=== PATIENT | male | born 1945 | race Caucasian/White ===

== ENCOUNTER 2016-12-17 05:44 | Inpatient (IN) | payer MEDICARE, BC ==
[~2016-12-17] VITALS: Ht 185.4 cm; Wt 86.8 kg
--- NOTE | ~2016-12-17 | WND ---
ADMIT: 12/17/2016 RM/LOC: 508 [facility] MR#: [id number] [address] [facility] [address] [place], [place] [address] ZACKARY NUNES [address] [place] [address] W[facility] SEX: M AGE: 71 : 1945 DATE OF VISIT: 12/19/2016 TIME IN: 1120 hours. TIME OUT: 1130 hours. All 10 minutes was spent in ostomy education. HISTORY OF PRESENT ILLNESS: This is a 71-year-old male, who is status post laparoscopic low anterior colon resection with diverting loop ileostomy secondary to rectal cancer. He had completed his neoadjunctive chemotherapy and radiation. His presenting symptoms were diarrhea with incontinence that time. He was diagnosed in the Fall of 2015. He went to Surgery on 11/19/2016. He was seen by Valencia Dial APRN, certified wound ostomy nurse on 12/18/2016, at which time, his ostomy education was started. He also had his pouching system changed at that time. REVIEW OF SYSTEMS: He is examined in a hospital room where he is awake, alert, and oriented x3. He is dressed in streak colors, ready to be discharged home. He denies any recent fever or chills. No nausea or vomiting. No cough, cold, or chest pain. He states his abdomen is quite comfortable. He has no concerns other than he would like to be discharged. PHYSICAL EXAMINATION: VITAL SIGNS: 98.1, 66, 16, blood pressure 132/63, O2 sats on room air 97%. Focused exam is to his abdomen. His abdomen is slightly distended. He does have a stoma in the right lower quadrant. It is bright red, moist with the os in the center. There is a rosemarie in place. It is 40 mm. The pouching system is intact without leakage. There is fecal effluent in the pouching system. ASSESSMENT: Functioning loop ileostomy status post laparoscopic low anterior resection due to rectal cancer. TREATMENT PLAN: All 10 minutes was spent in reviewing ostomy education. They also decided to get their ostomy supplies from [facility] in [place]. Therefore, an E-script was sent to [facility] for Skip New Image 70 mm ADMIT: 12/17/2016 RM/LOC: 508 [facility] MR#: [id number] [id number] [place], [place] [address] ZACKARY NUNES [address] [place] [address] W[facility] Clinic SEX: M AGE: 71 : 1945 wafer #[id number] with pouch #[id number], with instructions to change the wafer and pouch about every 3 to 4 days and as needed for leakage. Also ordered adhesive remover wipes to be used with wafer changes if needed to help remove the ostomy wafer. Also ordered No Sting Barrier wipes to use around the stoma to protect with skin. The patient has a followup appointment [facility] on 01/02/2017 at 1245 hours. Encouraged to call the [facility] with any questions or concerns prior to that time. The patient and his voiced understanding of physical findings and treatment plan. Thank you for this referral, and Wound will continue to follow. Vero Restrepo APRN/ ana JOB #: [id number] CC: Roger Ocampo MD, Attending Physician Carlos Guerra MD, Family Physician
--- NOTE | ~2016-12-17 | WND ---
ADMIT: 12/17/2016 RM/LOC: 508 [facility] MR#: [id number] [address] [place], [place] [address] CLAY NUNES [address] [place] [address] Wound Care Clinic SEX: M AGE: 71 : 1945 DATE OF VISIT: 12/18/2016 REASON FOR VISIT: Status post colon resection and low anterior with diverting loop ileostomy laparoscopic secondary to obstructing rectal cancer. HISTORY OF PRESENT ILLNESS: Clay is a 71-year-old male, who was admitted to [facility] on December 17, 2016, for surgery secondary to rectal cancer. He has completed his neoadjuvant chemoradiation therapy. He reports that in July this was diagnosed. He said that he was having diarrhea with incontinence at times. PAST MEDICAL HISTORY: Thyroid disorder and malignant neoplasm. ALLERGIES: No known medication allergies. CURRENT MEDICATIONS: 1. Synthroid 0.175 mg tablet. 2. Lovenox 40 mg subcu daily. 3. Pepcid 20 mg twice daily. SOCIAL HISTORY: He reports that he has smoked his entire life 1 pack a day. He also reports using caffeine. He denies any alcohol or illicit drug use. FAMILY HISTORY: He reports that his mother in her 70s of ovarian cancer, and his father in his 90s of a motor vehicle accident. REVIEW OF SYSTEMS: The patient is an alert and oriented 71-year-old male, who is anxious to discharge from the hospital. He reports the only pain he is having right now is secondary to the gas that they inflated his abdomen with prior to surgery. He denies any complaints of fever or chills. He denies any nausea or vomiting. His girlfriend is at bedside, and they are both receptive to learning about the ileostomy. He does report a dry cough, which increases his abdominal pain. He denies any chest pain or shortness of breath. PHYSICAL EXAMINATION: VITAL SIGNS: Temperature is 98.8 degrees Fahrenheit, pulse is 66, respirations 18, blood pressure 115/58, and pulse ox 92% on room air. Assessment of his abdomen reveals a well budded loop ileostomy in the right lower quadrant with the rosemarie in place. The stoma is pink and moist. Peristomal skin is intact. He has approximately 300 mL of brown effluent in his bag. ADMIT: 12/17/2016 RM/LOC: 508 [facility] MR#: [id number] [address] [address] LCAY NUNES [address] [place] [address] Wound Care Clinic SEX: M AGE: 71 : 1945 ASSESSMENT: Colon resection and low anterior with diverting loop ileostomy. PLAN: Clay was able to empty the bag himself. He also changed the wafer himself. He had trouble hurting while trying to remove the current wafer and ripped some of his skin in the 7 o'clock area from his stoma. After the peristomal skin was cleansed with warm soapy water, I used skin prep and then helped him place the wafer over the rosemarie. In addition, I helped him apply the bag to the wafer. [facility] will continue to monitor and continue to educate. He was left the [facility] patient information folder and voiced no further questions or concerns. I would like to thank Dr. Ocampo for allowing us to participate in Clay' care. Valencia Dial, MAREK/ ana JOB #: [id number] CC: Roger Ocampo, Attending Physician Carlos Guerra, Family Physician
[2016-12-20] MEDS ORDERED: SYNTHROID DP0.175 MG PO (16:44)
[2016-12-20] MEDS ORDERED: NORCO 5-325 TA1 EACH PO (16:45)
--- NOTE | 2017-01-13 08:52 | DS ---
ADMIT: 12/17/2016 RM/LOC: 508 [facility] MR#: [id number] [address] [facility] [address] [place], [place] [address] ZACKARY NUNES [address] [place] [address] Discharge Summary SEX: M AGE: 71 : 1945 ADMISSION DATE: 12/17/2016 DISCHARGE DATE: 12/19/2016 ADMITTING DIAGNOSIS: Rectal cancer. DISMISSAL DIAGNOSES: 1. 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 2. Hypothyroidism. PROCEDURES: Laparoscopic low anterior resection with diverting loop ileostomy. HOSPITAL COURSE: The patient was an inpatient admit with routine med surg orders. He was given a morphine NARCOTICS AND/OR VICE DETECTIVE for pain control and was started on clears. Overall, the patient recovered well while in the hospital. A Eparce that was placed intraoperatively was pulled postop day #1. Wound Care nursing was consulted to help in the ostomy cares of this patient, and he was tolerating an advanced diet. Vitals began to normalize while in the hospital, and he was afebrile. The patient was weaned off his morphine NARCOTICS AND/OR VICE DETECTIVE and was tolerating oral pain medications. He continued to recover well and discharged home on 12/19/2016. DISCHARGE INSTRUCTIONS: 1. Follow up with Dr. Ocampo in [place] on 12/30/2016. 2. Okay to shower. 3. No lifting greater than 20 pounds for 4 weeks. 4. Empty bag when 1/3 to 1/2 full and change wafer in bag every 3 days. 5. Follow up with Wound Care January 02. DISCHARGE MEDICATION LIST: 1. Synthroid 0.175 mcg at bedtime. 2. [place] 5/325, 1-2 tabs q.4 hours p.r.n. ANGELINE Izaguirre / Roger Ocampo MD / ramos JOB #: [id number] CC: Roger Ocampo MD, Attending Physician Carlos Guerra MD, Family Physician
--- NOTE | 2017-01-13 08:52 | OR ---
ADMIT: 12/17/2016 RM/LOC: 508 [facility] MR#: [id number] [address] [address] ZACKARY NUNES [address] [place] [address] Operative/Delivery Room Report SEX: M AGE: 71 : 1945 SURGERY DATE: 12/17/2016 SURGEON: Roger Ocampo MD HEAD HOLDER: Boy Montenegro MD. PREPROCEDURE DIAGNOSIS: Rectal cancer. POSTPROCEDURE DIAGNOSIS: Rectal cancer. PROCEDURE: Laparoscopic low anterior resection with diverting loop ileostomy. INDICATIONS: The patient is a 71-year-old who has been diagnosed with a large, near obstructing low lying rectal cancer, underwent preoperative chemo radiation therapy who now presents for laparoscopic versus open low-anterior resection. FINDINGS: The patient was taken to the operating room. General endotracheal anesthesia was induced. The patient's legs were placed in low lithotomy position. The abdomen was prepped and draped in normal sterile fashion. The case was begun by making a vertical infraumbilical 5 mm skin incision using #11 blade. A retractable 5 mm port was placed within the abdomen. The abdomen was insufflated with CO2 to an intra-abdominal pressure of 15 mmHg. A camera was placed showing no bowel or vascular injury. A left lower quadrant 5 mm port was placed under direct vision. A right upper quadrant 5-mm port was placed and a right lower quadrant 12-mm port was placed under direct vision. The case was begun by eviscerating all the small bowel loops out of the pelvis and placing the patient in a steep Trendelenburg position. We began by mobilizing the sigmoid colon from the left side of the retroperitoneum along the white line of Toldt using Harmonic scalpel. We identified the left ureter easily. We scored the visceral peritoneum on each pelvic sulci laterally and wide to have a nice mesorectal excision. When we continued this dissection distal to the sacral promontory, we were able to obtain access to the posterior mesorectal space and again using Harmonic scalpel dissection, we continued this dissection down through avascular mesorectal space posteriorly and then we worked both posterolaterally and anterolaterally and then we eventually connected our dissection anteriorly over the top of the rectum just below the seminal vesicles. Continued our dissection distally and circumferentially until we identified our previously colonoscopically placed blue dye. We could clearly see the tumor during the course our dissection, but I also knew that was a very long tumor preoperatively. So I wanted to make sure we got down all way down to our previously marked blue dye, which we were able to easily identify. We dissected posteriorly to the rectum taking down the mesorectal fatty tissue in preparation for division of our distal rectum. Once I felt satisfied with this dissection, I then used about 4 or 5 firings of an Endo JO-45, 3.5 mm stapler to divide the distal rectum. We were able do this completely and freely mobilize the rectum out of the pelvis which again identified a nonbloody, nice, avascular mesorectal plane. I then was able to manipulate our large bowel and identify a segment of the distal sigmoid that I ADMIT: 12/17/2016 RM/LOC: 508 [facility] MR#: [id number] [address] [place] [address] ZACKARY NUNES [facility] [place] [address] Operative/Delivery Room Report SEX: M AGE: 71 : 1945 felt easily reached down to our distal rectal staple line. I have marked the area with harmonic scalpel scoring the sigmoid mesentery on both the lateral and medial aspect so that we could divide the mesentery through our right lower quadrant excision site. Once we had this marked, I removed our right lower quadrant 12 mm port site, enlarged the skin incision with a #10 blade. Divided the rectal muscular fascia with cautery, placed a wound protector within the abdomen and brought the specimen out through the right lower quadrant incision. We were able to identify our previously identified area for a proximal anastomosis. We divided the mesentery between clamps and 0 Vicryl ties. We divided our colon with a 10 blade and placed a 3-0 Prolene pursestring suture through our proximal colon. Placed a 29 EEA anvil into proximal colon segment and tied down the pursestring. Divided the pericolonic fatty connective tissue with electrocautery. We then fine tuned the purse- string with another interrupted 3-0 silk Popoff sutures. I felt like we had good bowel apposition with our circular staple. We placed the specimen back into the intra-abdominal space. We re-insufflated the intra-abdominal space with CO2 and obtained a pneumoperitoneum using towel clips at our proposed right lower quadrant ostomy excision site. Dr. Montenegro went below, placed dilators up through the rectum, felt that we were about 3 cm or so proximal to the sphincter muscles. He brought a 29 EEA stapler through the sphincter muscles and brought the spike out through our lower rectal staple line. I was able to attach the 2 ends of our circular staple. He tied these down and there was no twisting of our bowel. There was no tension at all on this anastomosis. We identified a really good blood supply as well. He fired the anastomosis, removed the stapler with nice full thickness proximal distal rings. Since we were diverting with a loop, I did not test the anastomosis with a proctoscope. Identified the cecum and ran the small bowel about 15 cm proximally. We shut off our air, removed all of our ports sites, opened our right lower quadrant excision site, removing the towel clips. We brought the bowel out through this right lower quadrant site. I sutured down the fascia laterally with running #1 ADMIT: 12/17/2016 RM/LOC: 508 [facility] MR#: [id number] [address] [address] ZACKARY NUNES [address] [place] [id number] Operative/Delivery Room Report SEX: M AGE: 71 : 1945 single stranded PDS suture in a posterior and anterior layer, leaving an adequate defect for a loop ileostomy bowel. I then placed a stomal bridge through the mesenteric defect. I opened the distal aspect of our ileum and broke the proximal aspect of our ileostomy with interrupted 3-0 Vicryl suture and the distal aspect even with the surrounding dermis. I then closed the lateral aspect of the skin incision at this stomal site with skin luz and our 3 remaining 5 mm port sites closed with skin luz as well. A stoma appliance was then placed around our loop ileostomy site. Patient's legs were placed in the supine position. The patient was extubated and wheeled to recovery room in good condition. EDIT: 12/18/2016 0612 njv Roger Ocampo MD/ ana JOB #: [id number] CC: Roger Ocampo, Attending Physician Carlos Guerra, Family Physician
[2017-02-13] MEDS ORDERED: FLOMAX DPS0.4 MG PO (08:18)
== END 2016-12-19 11:40 | disposition home or self-care (01) | DRG 331 ==
LOC: WOR 05:44 → 5MS 05:44
PROVIDERS: ADMIT Surgery
DX: C20 Malignant neoplasm of rectum (principal); E03.9 Hypothyroidism, unspecified; F17.210 Nicotine dependence, cigarettes, uncomplicated

== ENCOUNTER 2017-02-07 12:41 | Inpatient (IN) | payer MEDICARE, BC ==
[~2017-02-07] VITALS: Ht 185.4 cm; Wt 85.6 kg
--- NOTE | ~2017-02-07 | HP ---
ADMIT: 02/07/2017 RM/LOC: [facility] MR#: [id number] [address] [address] ZACKARY NUNES [address] [place] [address] Pre-OP History and Physical SEX: M AGE: 71 : 1945 DATE OF SERVICE: 02/07/2017 REASON FOR ADMISSION: Rectal bleeding. HISTORY OF PRESENT ILLNESS: This patient is a 71-year-old male, who actually is status post laparoscopic low anterior resection about six weeks ago somewhere around there for a rectal cancer with diverting loop ileostomy and has not been reversed yet. Did some chemotherapy, but did not really tolerate it that well and so did not finish. Been having some complaints of kind of some lower pelvic type issues at times and at times has passed little it of mucousy blood and that is not unusual as we have told him, but here recently started having a fair amount of bleeding per rectum. He was seen over in [place]. Actually, his hemoglobin I think was little down from 11 to 9, they ended up transferring him over here, they gave him 2 units of blood. His hemoglobin here was 11 as well. For whatever reason, Dr. Hough re-CT'ed him here, nothing different from one stand to the other. There are no signs of active bleeding and it almost looks like an abscess or possible breakdown of his anastomosis. I think this is more of redundancy of the bowel down there. He does not have a white count, he then has fevers that acts like that. He does have some diverticulitis, could be a bleed from the anastomosis or from diverticula. PAST MEDICAL HISTORY: Significant that is his only surgery. He has some hypothyroidism, BPH, for which he takes Flomax and thyroid medicine. Like I said, no other surgeries. Denies any significant other complaints. REVIEW OF SYSTEMS: Overall, he has been feeling a little bit weak and that is it, and having the rectal bleeding. All other review of systems negative. His ostomy is working. No belly pain. He is eating, drinking, doing okay. No chest pain or shortness of breath. ALLERGIES: NO KNOWN DRUG ALLERGIES. PHYSICAL EXAMINATION: GENERAL: He is alert and oriented. He is in no acute distress. VITAL SIGNS: Stable. HEENT: His sclerae are nonicteric. Extraocular muscles are intact. CHEST: Clear. HEART: Regular rate and rhythm. ABDOMEN: His ostomy is in place. In his right lower quadrant, loop ileostomy. ADMIT: 02/07/2017 RM/LOC: [facility] MR#: [id number] [address] [address] ZACKARY NUNES [place] [address] [place] [address] Pre-OP History and Physical SEX: M AGE: 71 : 1945 There is no pain. No blood there. Soft abdomen. Positive bowel sounds. EXTREMITIES: No clubbing, cyanosis, or edema. He does have bright red blood per rectum. ASSESSMENT AND PLAN: At this point, he is obviously going to be admitted but prior to that, I am going to do a flexible sigmoidoscopy on him to look at his anastomosis. I visit with him and the family. There are times we can find something, most of the time we cannot. I may not be able to see anything with the blood. Would just kind of have to take a quick look, try to be as gentle as possible. I am not too worried because, part of it is, he is already diverted with his loop ileostomy. We will go from there. Boy Montenegro MD/ ana JOB #: [id number] CC: Boy Montenegro, Attending Physician Boy Montenegro, Family Physician
[~2017-02-07 12:41] MED LIST: NORCO 5-325 TA1 EACH PO; SYNTHROID DP0.175 MG PO
[2017-02-13] MEDS ORDERED: FLOMAX DPS0.4 MG PO (08:18)
--- NOTE | 2017-02-17 10:27 | ER ---
ADMIT: 02/07/2017 RM/LOC: 305 [facility] MR#: [id number] [address] [address] ZACKARY NUNES [address] [place] [address] Emergency Room Report SEX: M AGE: 71 : 1945 DATE: 02/07/2017 ADDENDUM: A 71-year-old white male coming in with rectal bleeding from [place]. Evidently, he had acute episode of this. He evidently at the beginning of December had rectal cancer and had a colectomy. CT scan here shows a probable rectal abscess at the anastomosis of the site. He has josafat blood stool rectally. His CBC and chemistry have been negative. I have talked to Dr. Montenegro, he will admit him. CONDITION ON DISCHARGE: Serious, but stable. Elian Hough MD/ gomezl JOB #: [id number] CC: Boy Montenegro MD, Attending Physician Boy Montenegro MD, Family Physician
--- NOTE | 2017-02-18 13:26 | OR ---
ADMIT: 02/07/2017 RM/LOC: 305 [facility] MR#: [id number] [address] [address] ZACKARY NUNES [address] [place] [address] Operative/Delivery Room Report SEX: M AGE: 71 : 1945 SURGERY DATE: 02/07/2017 SURGEON: Boy Montenegro MD PREPROCEDURAL DIAGNOSIS: Need for IV access, critically ill patient. POSTPROCEDURAL DIAGNOSIS: Need for IV access, critically ill patient. PROCEDURE: Placement of left subclavian Arrow triple lumen. ANESTHESIA: Local at bedside. He is intubated. INDICATION FOR PROCEDURE: Please see notes in chart. DESCRIPTION OF PROCEDURE: After the risks, benefits, possible complications, and alternatives had been explained and informed consent had been obtained from family. Here at the ICU at the bedside, surgical field was prepped and draped in a sterile manner. Complete sterile precautions were used. Gown, cap, gloves, and mask everything sterilely prepped and draped. Left infraclavicular area was anesthetized with lidocaine. Cook needle was introduced in the left subclavian vein with good aspiration. Guidewire was passed. There was some ectopy on the monitor. Dilated over top of the guidewire. The dilator removed the catheter threaded over top of the guidewire, and the Arrow triple lumen catheter threaded over the guidewire. The guidewire removed. There was good aspiration and flushing of all three ports. It was sewn in position. Currently, chest x-ray is pending. He tolerated it well. Boy Montenegro MD/ ana JOB #: [id number] CC: Boy Montenegro, Attending Physician Boy Montenegro, Family Physician
--- NOTE | 2017-02-18 13:26 | OR ---
ADMIT: 02/07/2017 RM/LOC: [facility] MR#: [id number] [address] ZACKARY NUNES [address] [place] [address] Operative/Delivery Room Report SEX: M AGE: 71 : 1945 SURGERY DATE: 02/07/2017 SURGEON: Boy Montenegro MD PREOPERATIVE DIAGNOSIS: Rectal bleeding status post laparoscopic low anterior resection for a rectal cancer back in December. He was treated with preoperative radiation chemotherapy. POSTOPERATIVE DIAGNOSIS: Significant hemorrhage from an ulcerated area basically into the left sacral area that we were finally able to control with thumbtacks. STRAIGHTEDGE MAN: Roger Ocampo MD, who was quite necessary for adequate exposure, suction, and control of this bleeding. It would not have been able to be accomplished without him. ESTIMATED BLOOD LOSS: 2000 mL. INDICATION FOR PROCEDURE: Please see my H and P. DESCRIPTION OF PROCEDURE: After the risks, benefits, possible complications, and the alternatives had been explained and informed consent had been obtained. The patient was taken back to the minor procedure room, and there was bright red blood right at his rectum, started off just doing a flex sig and the anastomosis is probably within 4 cm from his anus, and ultimately, I started suctioning and cleaning things, and in the process then this area of what looked like an ulcer, I cleaned some blood and some kind of semi fresh clot away and it started bleeding, and I was just basically unable to keep up with my suction with a colonoscope to where I could get a clip on there. I was trying to see if there was 1 vessel that I get a clip on. Ultimately, I pulled the scope out, held pressure. At this point, he was starting to lose enough blood and he was getting hypotensive and tachycardic. I had called Dr. Ocampo, my partner, and he came in, and we had intubated him. Like I said, I was holding pressure manually with a finger trying to blindly at least hold enough pressure to keep this from continuing bleeding while we got caught up, we got a couple units of blood in the room, but we ultimately at one point then started massive transfusion protocol, so we can get products more readily available. Once he was intubated, we had things under control. His blood pressure was better, his heart rate was better. We put him back on a side, used an anal speculum then and Radha sucker, which was much better sucker to get up there and actually using the colonoscope because this was just high enough you could not see it really with your naked eyes down it was up over just a corner and then what it looks like is a radiation ulcer basically into kind of the sacrum, and we finally identified this vessel. We were able to just use actually the sucker for manual pressure, and I originally used them through the scope, attempted to use a Resolution clip, and I felt like I was ADMIT: 02/07/2017 RM/LOC: [facility] MR#: [id number] [address] [address] ZACKARY NUNES [address] [place] [address] Operative/Delivery Room Report SEX: M AGE: 71 : 1945 good and right on it and I really clipped down, but it did not do anything, it continued to bleed. Ultimately, we ended up getting a couple of thumbtacks that we were able to go transiently up and pushed those into some of the kind of bone/cartilage around this and that finally stopped the bleeding. At this point, we got caught up, he ended up getting a total 4 units of blood, 4 units of FFP, and at this point, Dr. Ocampo and I are visiting and felt that the safest thing was to have Dr. Chandler from [facility] come in and embolize this vessel if we could find it to take the pressure off it just worried our tacks may not hold, and if they came loosening and start bleeding, and I might not get him anywhere before he , so from that standpoint from the minor room, he was taken over to [facility] for Dr. Chandler' procedure, and you can see his full dictated note on that. Boy Montenegro MD/ ana JOB #: [id number] CC: Boy Montenegro, Attending Physician Boy Montenegro, Family Physician
--- NOTE | 2017-03-12 16:25 | DS ---
ADMIT: 02/07/2017 RM/LOC: [facility] MR#: [id number] [address] ZACKARY NUNES [address] [place] [address] General Discharge Summary SEX: M AGE: 71 : 1945 ADMISSION DATE: 02/07/2017 DISCHARGE DATE: 02/11/2017 ADMITTING DIAGNOSIS: 1. Rectal bleeding status post laparoscopic low anterior resection for rectal cancer, status post chemotherapy. 2. Need for IV (intravenous) access. DISMISSAL DIAGNOSIS: 1. Rectal bleeding status post laparoscopic low anterior resection for rectal cancer, status post chemotherapy. 2. Need for IV (intravenous) access. 3. Hypothyroidism. 4. BPH (benign prostatic hypertrophy). 5. Diverticulitis. PROCEDURES: 1. Flexible sigmoidoscopy with mechanical hemostasis using thumb tacks. 2. Left subclavian Arrow triple-lumen catheter placement. 3. Pelvic angiogram with selective arteriogram of bilateral internal iliac artery and subselective arteriogram of the bilateral middle rectal artery. 4. Coil embolization, left middle rectal artery. HOSPITAL COURSE: The patient was admitted for acute hemorrhage per rectum and immediately underwent flex sigmoidoscopy with temporary hemostasis using thumb tacks and then subsequent arteriogram with coiled embolization of the left middle rectal artery per [facility]. The patient was then placed in the ICU on a vent. Dr. Saldaña was consulted for medical management. He was also started on pressors. Overall, the patient recovered well while in the hospital. He was extubated postop day #1 and was started on clears slowly. A Eparce that was placed intraoperatively was pulled on postop day #2. He was given 2 units of PRBCs to help with his blood counts. There were concerns that he did have additional bleeding, which was noted on postop day #2, and so he was given vitamin K for anticoagulation reversal. This was a transient episode, as the patient's pressures maintained and his hemoglobin stabilized. The patient continued to recover well. He was taken down to the ICU and put on PCU status. His pressors were stopped and lab work began to ADMIT: 02/07/2017 RM/LOC: [facility] MR#: [id number] [address] [address] ZACKARY O [address] [place] [address] General Discharge Summary SEX: M AGE: 71 : 1945 normalize. His pain was controlled and vitals remained stable. On 02/11/2017, his central line was removed and the patient was able to discharge to home. DISCHARGE INSTRUCTIONS: 1. Follow up with Dr. Ocampo in [place]. 2. Take dressings off 02/12/2017 after 11:00 a.m. of left chest. 3. CBC at [facility] at 1:30 on 02/24/2017. DISCHARGE MEDICATION LIST: 1. Levothyroxine 175 mcg daily. 2. Tamsulosin 0.4 mg daily. ANGELINE Izaguirre / Boy Montenegro MD / deidra JOB #: [id number] CC: Boy Montenegro MD, Attending Physician Boy Montenegro MD, Family Physician
== END 2017-02-11 11:30 | disposition home or self-care (01) | DRG 356 ==
LOC: ER 12:41 → SSS 16:10 → 3ICU 18:41
PROVIDERS: ADMIT Surgery
DX: K63.3 Ulcer of intestine (principal); R57.1 Hypovolemic shock; K57.32 Diverticulitis of large intestine without perforation or abscess without bleeding; C20 Malignant neoplasm of rectum; D62 Acute posthemorrhagic anemia; T66.XXXA Radiation sickness, unspecified, initial encounter; E87.6 Hypokalemia; E03.9 Hypothyroidism, unspecified; N40.0 Benign prostatic hyperplasia without lower urinary tract symptoms; Z93.2 Ileostomy status; Z66 Do not resuscitate